=== PATIENT | female | born 1995 | race Caucasian/White ===

== ENCOUNTER 2017-04-01 16:12 | Emergency (ER) | payer OTHER ==
[2017-04-01 16:23] VITALS: RESP 16; TEMP 98.4
--- NOTE | 2017-04-01 17:18 | EDPHY ---
H & P Time Seen by Provider: 04/01/17 17:00 HPI/ROS: CHIEF COMPLAINT: Bilateral foot laceration post glass bottle falling HISTORY OF PRESENT ILLNESS: 22-year-old female with up-to-date tetanus sustained accidental laceration to her bilateral dorsal feet when a glass bottle fell onto her feet, the glass broke. She sustained total of 2 lacerations 1 to the each foot medial dorsal aspect. Occurred shortly prior to arrival. PRIMARY CARE PROVIDER: REVIEW OF SYSTEMS: A ten point review of systems was performed and is negative with the exception of the items mentioned in the HPI PHYSICAL EXAM (Prior to examination, patient consented to physical exam, hands were washed and my usual and customary physical exam procedures followed) 1) GENERAL: Well-developed, well-nourished, alert and oriented. Appears to be in no acute distress. 2) HEAD: Normocephalic 3) HEENT: sclera anicteric 4) LUNGS: Breathing comfortably. 5) SKIN: Left foot: Tender to palpation dorsal forefoot in location of a 1 cm laceration overlying the 1st MTP. No visible palpable foreign body. No crepitus. No signs of infection. Soft compartments. Right foot: Tender to palpation dorsal forefoot location where she has an overlying 0.5 cm laceration overlying the 1st MTP. No visible or palpable foreign body. No crepitus. No signs of infection. Soft compartments. Smoking Status: Never smoked Constitutional: Initial Vital Signs Temperature (C) 36.9 C 04/01/17 16:20 Heart Rate 83 04/01/17 16:20 Respiratory Rate 16 04/01/17 16:20 Blood Pressure 111/69 04/01/17 16:20 O2 Sat (%) 98 04/01/17 16:20 O2 Delivery Mode Room Air,Bi-Pap Allergies/Adverse Reactions: No Known Allergies Allergy (Verified 04/01/17 16:20) Home Medications: Medication Instructions Recorded Sertraline HCl 04/01/17 MDM/Departure - MDM Procedures: Procedure: Laceration repair. I explained the indications, risks and benefits for both laceration repair and anesthetic administration. Verbal consent was obtained from the patient . The laceration on the left foot was anesthetized using 0.5% bupivicaine with epinephrine . After anesthetic administered the patient was observed for a period of time and had no apparent adverse effects. The wound was cleaned, prepped, draped in normal sterile fashion and explored to its base. No foreign body seen, no foreign bodies palpated. There were no deep structures involved. No tendon injury was identified. The wound was repaired with 2 simple interrupted 3 0 Prolene sutures.. The wound repair was simple. The procedure was performed by myself. Patient has been informed that scarring will occur, although efforts have been made to minimize this. Laceration on the right foot will be allowed to heal via secondary intention - Depart Disposition: Home, Routine, Self-Care Clinical Impression: Laceration of left foot Qualifiers: Encounter type: initial encounter Qualified Code(s): S91.312A - Laceration without foreign body, left foot, initial encounter Condition: Good Instructions: Laceration (ED), Care For Your Stitches (ED) Additional Instructions: Return to the ER if you develop redness, swelling, discharge, warmth to the wound, red streaks going up your leg, or any other symptoms that concern you. Referrals: Return, to the ER in 14 days for suture removal [Other] - As per Instructions
[2017-04-01 18:02] VITALS: BP 107/45; PULSE 81; O2SAT 97
== END 2017-04-01 18:02 | disposition home or self-care (01) ==
PROC: 0HQNXZZ Repair Left Foot Skin, External Approach (ICD-10-PCS; principal; 2017-04-01)
DX: S91.312A Laceration without foreign body, left foot, initial encounter (principal); W25.XXXA Contact with sharp glass, initial encounter

== ENCOUNTER 2017-12-10 11:10 | Emergency (ER) | payer OTHER ==
[2017-12-10 11:17] VITALS: TEMP 97.7
[2017-12-10] MEDS ORDERED: NS 1,000 ML IV ONE ×3 (11:27→11:30)
[2017-12-10] MEDS ORDERED: ONDANSETRON 4 MG/2 ML VIAL IVP ONE (11:30)
--- NOTE | 2017-12-10 11:32 | EDPHY ---
H & P Stated Complaint: N/V/D abdominal pain for 18 hours Time Seen by Provider: 12/10/17 11:25 HPI/ROS: Chief complaint: Nausea, vomiting and diarrhea History of present illness: This is a 22-year-old female who presents to the emergency department for evaluation of nausea, vomiting and diarrhea. Patient reports the onset of symptoms last night. She states initially she had the nausea and vomiting, multiple episodes described as nonbloody. She subsequently developed the diarrhea. Loose and watery. Again described as nonbloody. She has had associated abdominal cramping. She denies potential precipitating factors. She denies alleviating factors. She denies other associated signs or symptoms: No fevers, no urinary symptoms. Review of systems: A 10 point review of systems was obtained and other than described above was negative - Personal History LMP (Females 10-55): 8-14 Days Ago Current Tetanus/Diphtheria Vaccine: Yes Current Tetanus Diphtheria and Acellular Pertussis (TDAP): Yes Tetanus Vaccine Date: 2013 - Medical/Surgical History Hx Asthma: No Hx Chronic Respiratory Disease: No Hx Diabetes: No Hx Cardiac Disease: No Hx Renal Disease: No Hx Cirrhosis: No Hx Alcoholism: No Hx HIV/AIDS: No Hx Splenectomy or Spleen Trauma: No Other PMH: [place]. anxiety - Social History Smoking Status: Never smoked - Physical Exam Exam: General Appearance: Alert, nontoxic. Eyes: Pupils equal and round no pallor or injection. ENT, Mouth: Mucous membranes moist. Respiratory: There are no retractions, lungs are clear to auscultation. Cardiovascular: Regular rate and rhythm. Gastrointestinal: Abdomen is soft and non tender, no masses, bowel sounds normal. Neurological: Alert and oriented x4. Strength and sensation intact and symmetrical. Skin: Warm and dry, no rashes. Musculoskeletal: Neck is supple non tender. Extremities are symmetrical, full range of motion. Psychiatric: Patient is oriented X 3, there is no agitation. Constitutional: Initial Vital Signs Temperature (C) 36.5 C 12/10/17 11:14 Heart Rate 95 12/10/17 11:14 Respiratory Rate 20 12/10/17 11:14 Blood Pressure 107/72 12/10/17 11:14 O2 Sat (%) 97 12/10/17 11:14 O2 Delivery Mode Room Air Allergies/Adverse Reactions: No Known Allergies Allergy (Verified 12/10/17 11:14) Home Medications: Medication Instructions Recorded Sertraline HCl 04/01/17 ADDERALL 15 MG TABLET 12/10/17 Ondansetron Odt [Zofran Odt 4 mg 4 mg PO Q4 #6 tab 12/10/17 (*)] Medical Decision Making ED Course/Re-evaluation: Patient seen under the supervision of my secondary supervising physician Dr. Baldo Espinoza. Patient presents for nausea, vomiting and diarrhea. She is nontoxic. Vital signs are stable. Blood studies largely unremarkable. Serial abdominal exams have been performed and remain benign. Symptomatically treated and she is feeling better. She is tolerating oral challenges without difficulty. She will be discharged home. She is to follow up with [facility]. Strict return precautions are given. Patient voiced understanding and agreement with plan. Differential Diagnosis: Included but not limited to gastritis, gastroenteritis, biliary tract disease, pancreatitis, colitis, an associated complications - Data Points Laboratory Results: Laboratory Results 12/10/17 11:20 12/10/17 11:20 12/10/17 12/10/17 12/10/17 11:20 11:20 11:20 WBC 11.66 10^3/uL H 10^3/uL (3.80-9.50) RBC 4.45 10^6/uL 10^6/uL (4.18-5.33) Hgb 14.4 g/dL g/dL (12.6-16.3) Hct 42.5 % % (38.0-47.0) MCV 95.5 fL fL (81.5-99.8) MCH 32.4 pg pg (27.9-34.1) MCHC 33.9 g/dL g/dL (32.4-36.7) RDW 12.3 % % (11.5-15.2) Plt Count 198 10^3/uL 10^3/uL (150-400) MPV 8.7 fL fL (8.7-11.7) Neut % (Auto) 91.4 % H % (39.3-74.2) Lymph % (Auto) 4.5 % L % (15.0-45.0) [place] % (Auto) 3.3 % L % (4.5-13.0) Eos % (Auto) 0.0 % L % (0.6-7.6) Baso % (Auto) 0.3 % % (0.3-1.7) Nucleat RBC Rel Count 0.0 % % (0.0-0.2) Absolute Neuts (auto) 10.65 10^3/uL H 10^3/uL (1.70-6.50) Absolute Lymphs (auto) 0.53 10^3/uL L 10^3/uL (1.00-3.00) Absolute Monos (auto) 0.39 10^3/uL 10^3/uL (0.30-0.80) Absolute Eos (auto) 0.00 10^3/uL L 10^3/uL (0.03-0.40) Absolute Basos (auto) 0.03 10^3/uL 10^3/uL (0.02-0.10) Absolute Nucleated RBC 0.00 10^3/uL 10^3/uL (0-0.01) Immature Gran % 0.5 % % (0.0-1.1) Immature Gran # 0.06 10^3/uL 10^3/uL (0.00-0.10) Sodium 138 mEq/L mEq/L (135-145) Potassium 3.6 mEq/L mEq/L (3.5-5.2) Chloride 100 mEq/L mEq/L (97-110) Carbon Dioxide 25 mEq/l mEq/l (22-31) Anion Gap 13 mEq/L mEq/L (8-16) BUN 16 mg/dL mg/dL (7-23) Creatinine 0.5 mg/dL L mg/dL (0.6-1.0) Estimated GFR > 60 Glucose 88 mg/dL mg/dL (70-100) Calcium 9.3 mg/dL mg/dL (8.5-10.4) Total Bilirubin 1.6 mg/dL H mg/dL (0.1-1.4) Conjugated Bilirubin 0.4 mg/dL mg/dL (0.0-0.5) Unconjugated Bilirubin 1.2 mg/dL H mg/dL (0.0-1.1) AST 27 IU/L IU/L (14-46) ALT 29 IU/L IU/L (9-52) Alkaline Phosphatase 77 IU/L IU/L (38-126) Total Protein 7.9 g/dL g/dL (6.3-8.2) Albumin 4.7 g/dL g/dL (3.5-5.0) Lipase 26 IU/L IU/L (23-300) Beta HCG, Qual NEGATIVE Medications Given: Discontinued Medications Dicyclomine HCl (Bentyl) 20 mg PO EDNOW ONE Stop: 12/10/17 12:34 Last Admin: 12/10/17 13:04 Dose: 20 mg Sodium Chloride (Ns) 1,000 mls @ 0 mls/hr IV ONCE ONE PRN Reason: Wide Open Stop: 12/10/17 11:28 Last Admin: 12/10/17 11:39 Dose: 1,000 mls Sodium Chloride (Ns) 1,000 mls @ 0 mls/hr IV EDNOW ONE; Wide Open PRN Reason: Protocol Stop: 12/10/17 11:31 Last Admin: 12/10/17 13:07 Dose: Not Given Sodium Chloride (Ns) 1,000 mls @ 0 mls/hr IV EDNOW ONE; Wide Open PRN Reason: Protocol Stop: 12/10/17 11:31 Last Admin: 12/10/17 12:11 Dose: 1,000 mls Ondansetron HCl (Zofran) 4 mg IVP EDNOW ONE Stop: 12/10/17 11:31 Last Admin: 12/10/17 11:39 Dose: 4 mg Ondansetron HCl (Zofran Odt 4 Mg Prepack#2) 1 btl TAKEHOME EDNOW ONE Stop: 12/10/17 13:57 Last Admin: 12/10/17 14:29 Dose: 1 btl Departure - Departure Disposition: Home, Routine, Self-Care Clinical Impression: Vomiting Qualifiers: Vomiting type: unspecified Vomiting Intractability: non-intractable Nausea presence: with nausea Qualified Code(s): R11.2 - Nausea with vomiting, unspecified Diarrhea Qualifiers: Diarrhea type: unspecified type Qualified Code(s): R19.7 - Diarrhea, unspecified Condition: Good Instructions: Ondansetron (By mouth), Acute Nausea and Vomiting (ED), Acute Diarrhea (ED) Additional Instructions: Follow-up with [facility] this week for recheck Drink plenty of fluids to stay hydrated Use Zofran as directed as needed for nausea and vomiting If symptoms worsen or new symptoms develop return to the emergency room for recheck Referrals: NONE *PRIMARY CARE P,. [Primary Care Provider] - As per Instructions [facility] [Cl[facility]] - As per Instructions Prescriptions: Ondansetron Odt [Zofran Odt 4 mg (*)] 4 mg PO Q4 #6 tab
[2017-12-10 11:35] LABS: PLATELET COUNT 198 10^3/uL (150-400)
[2017-12-10] MEDS ORDERED: DICYCLOMINE 10 MG CAP PO ONE (12:33)
[2017-12-10 13:07] VITALS: RESP 16; O2SAT 96
[2017-12-10] MEDS ORDERED: ONDANSETRON 4MG PREPACK#2 BTL TAKEHOME ONE (13:56)
[2017-12-10 14:01] VITALS: BP 124/71; PULSE 72
== END 2017-12-10 14:31 | disposition home or self-care (01) ==
DX: R11.2 Nausea with vomiting, unspecified (principal); R19.7 Diarrhea, unspecified; E86.9 Volume depletion, unspecified
CPT/HCPCS: 96374; J2405